=== PATIENT | male | born 1955 ===

== ENCOUNTER 2024-11-05 15:14 | Emergency (ER) | payer SELFPAY ==
[2024-11-05 15:15] VITALS: BP 172/87; PULSE 88; RESP 16; TEMP 36.6; O2SAT 99
== END 2024-11-05 16:20 | disposition left against medical advice (07) ==
LOC: ED 16:37
DX: Z53.21 Procedure and treatment not carried out due to patient leaving prior to being seen by health care provider (principal)
CPT/HCPCS: 99281